=== PATIENT | female | born 1985 | race Caucasian/White ===

== ENCOUNTER 2020-09-09 16:46 | Emergency (ER) | payer OTHER | END 2020-09-09 18:45 | disposition home or self-care (01) | LOC: FER 16:46 | DX: S50.01XA Contusion of right elbow, initial encounter (principal); M25.511 Pain in right shoulder; M25.551 Pain in right hip; W01.0XXA Fall on same level from slipping, tripping and stumbling without subsequent striking against object, initial encounter; Y92.009 Unspecified place in unspecified non-institutional (private) residence as the place of occurrence of the external cause | CPT/HCPCS: 71045; 71100; 73030; 73060; 73080; 73502 ==